=== PATIENT | male | born 1950 | race Caucasian/White ===

== ENCOUNTER → 2024-07-22 | Outpatient (CLI) | payer MEDICARE, OTHER | END | disposition home or self-care (01) | LOC: SHCH 13:56 | PROVIDERS: ATTEND Internal Medicine Cardiovascular Disease | DX: I08.2 Rheumatic disorders of both aortic and tricuspid valves (principal); R00.2 Palpitations; R55 Syncope and collapse | CPT/HCPCS: 93306 ==

== ENCOUNTER → 2024-07-28 | Outpatient (CLI) | payer MEDICARE, OTHER ==
[2024-07-28] MEDS: REGADENOSON 0.4 MG/5 ML PF SYG IVP ONE (16:06)
== END | disposition home or self-care (01) ==
LOC: SHCH 07:35 → EDUNIT# 08:10
PROVIDERS: ATTEND Internal Medicine Cardiovascular Disease
DX: R00.2 Palpitations (principal); R55 Syncope and collapse
CPT/HCPCS: 78452; 93017; J2785; A9500 ×2

== ENCOUNTER → 2024-08-23 | Outpatient (CLI) | payer MEDICARE, OTHER ==
--- NOTE | 2024-08-23 11:43 | HMCIMG ---
US ABDOMINAL COMPLETE HISTORY: Abdominal pain COMPARISON: None TECHNIQUE: Multiple transverse and longitudinal ultrasound images of the abdomen were obtained. FINDINGS: Abdominal aorta and inferior vena cava are not well visualized limiting evaluation. The visualized portion of the pancreas is within normal limits. Liver measures 14.3 cm. No gallstone is seen. Common duct measures 4 mm. No evidence of gallbladder wall thickening is seen. Both kidneys are seen. Right kidney measures 10 x 6.2 x 5.1 cm. Left kidney measures 10.7 x 6.1 x 4.5 cm. No hydronephrosis is seen of the both kidneys. The spleen is grossly unremarkable. IMPRESSION: 1. No gallstone or ductal dilatation is seen. 2. No hydronephrosis is seen.
--- NOTE | 2024-08-23 12:56 | HMCIMG ---
NM HIDA WITH EF/CCK REASON: RUQ PAIN. COMPARISON: None TECHNIQUE: Hepatobiliary imaging study was performed with 7 mCi of technetium Choletec through intravenous route. Gallbladder ejection fraction study was performed with 2.1 mcg of CCK through intravenous route. FINDINGS: Normal visualization of gallbladder and bowel activity noted within 1 hour. Gallbladder ejection fraction is within normal limits at 37%. IIMPRESSION: Normal hepatobiliary imaging study. Normal. Ejection fraction of 37%.
== END | disposition home or self-care (01) ==
LOC: RAH 09:56
PROVIDERS: ATTEND Internal Medicine Gastroenterology
DX: R10.11 Right upper quadrant pain (principal)
CPT/HCPCS: 78227; 76700; A9537